=== PATIENT | male | born 1965 | race Caucasian/White ===

== ENCOUNTER 2017-07-06 21:14 | Emergency (ER) | payer OTHER ==
[~2017-07-06] VITALS: Ht 188 cm; Wt 115.7 kg
--- NOTE | ~2017-07-06 | EKG ---
[place] [address] [address] [facility] [place] [address] ELECTROCARDIOGRAM REPORT Name: MARCEL WARD Room #: [facility]#: [id number] Admission: 07/06/17 Attend Phys: Discharge: 07/07/17 Date of : 61 Report #: [id number] THIS REPORT FOR: //name// [facility] ED Test Date: 2017-07-06 Test Time: 21:21:30 Pat Name: MARCEL WARD Department: Room: Gender: Director [employer]: WEN : 1965 Requested By: Ryan Gill Order Number: [id number] MD: Jacinto Zarate Measurements Intervals [place] Rate: 77 P: -1 IN: 155 QRS: -42 QRSD: 103 T: 53 QT: 387 QTc: 438 Interpretive Statements Sinus rhythm Left anterior fascicular block Abnormal R-wave progression, late transition No previous ECG available for comparison Electronically Signed On 07-07-2017 7:59:47 CDT by Jacinto Zarate [email or web address] <ELECTRONICALLY SIGNED> By: Jacinto Zarate MD, [facility] 07/07/17 [id number] 20 Jacinto Zarate MD, FACC /EPI
[2017-07-06 21:39] LABS: ABSOLUTE NEUTROPHILS 4.8 thou/uL (1.4-8.2); BASOPHILS 0.7 % (0.0-2.0); EOSINOPHILS 1.2 % (0.0-3.0); HEMATOCRIT 39.6 % (42.0-52.0); HEMOGLOBIN 13.2 gm/dL (14.0-18.0); LYMPHOCYTES 30.2 % (24.0-44.0); MANUAL DIFF NO; MCH 29.7 pg (26.0-34.0); MCHC 33.3 g/dL (28.0-37.0); MCV 89.2 fL (80.0-100.0); MONOCYTES 9.8 % (1.0-8.0); PLATELET COUNT 271 thou/uL (150-400); POLYS 58.1 % (36.0-66.0); RBC 4.44 mil/uL (4.50-6.00); RDW 14.8 % (10.5-14.5); WBC 8.3 thou/uL (4.0-11.0)
[2017-07-06 21:54] LABS: ANION GAP 11 mmol/L (7-16); BUN 9 mg/dL (7-18); CALCIUM 8.7 mg/dL (8.5-10.1); CHLORIDE 103 mmol/L (98-107); CO2 26 mmol/L (21-32); CREATININE 0.9 mg/dL (0.7-1.3); GLUCOSE 91 mg/dL (74-106); POTASSIUM 3.7 mmol/L (3.5-5.1); SODIUM 140 mmol/L (136-145)
[2017-07-06 21:55] LABS: TROPONIN-I < 0.04 ng/mL (<0.04-0.07)
[2017-07-07 01:07] VITALS: BP 117/69
== END 2017-07-07 01:08 | disposition home or self-care (01) ==
LOC: ER 21:14
PROVIDERS: Nurse Practitioner
DX: R07.89 Other chest pain (principal); F10.99 Alcohol use, unspecified with unspecified alcohol-induced disorder